=== PATIENT | male | born 1945 | race Caucasian/White ===

== ENCOUNTER 2018-12-06 08:37 | Emergency (ER) | payer BC, MEDICARE ==
[~2018-12-06] VITALS: Ht 175.3 cm; Wt 87.7 kg
[~2018-12-06 08:37] MED LIST: ASPIRIN LOW DOS81 M2 PO; LISINOPRIL10 MG PO; PRAVASTATIN20 MG PO; VICOPROFEN OR; VITAMIN D-31000 UNI1 PO
[2018-12-06 09:18] LABS: HEMATOCRIT 36.4 % (39.0-50.0); HEMOGLOBIN 12.2 g/dl (14.0-18.0); IMMATURE GRANULOCYTES 0.4 % (0.0-5.0); MEAN CELL VOLUME 90.5 fL CALC (80.0-100.0); MEAN CORPUSCULAR HGB 30.3 pG CALC (26.0-32.0); MEAN CORPUSCULAR HGB CONC 33.5 g/L CALC (32.0-36.0); NEUT# 3.53 thou/uL (1.82-7.42); RED BLOOD COUNT 4.02 mill/uL (4.70-6.10); RED CELL DISTRI WIDTH 12.7 % (11.5-15.5)
[2018-12-06 09:20] LABS: URINE BILIRUBIN - DIPSTICK NEGATIVE (NEGATIVE); URINE BLOOD DIPSTICK NEGATIVE (NEGATIVE); URINE COLOR YELLOW; URINE GLUCOSE - DIPSTICK NEGATIVE (NEGATIVE); URINE KETONE NEGATIVE (NEGATIVE); URINE LEUK ESTERASE TRACE (NEGATIVE); URINE NITRITE - DIPSTICK NEGATIVE (Negative); URINE PROTEIN - DIPSTICK NEGATIVE (NEG-TRACE); URINE UROBILINOGEN - DIPSTICK 0.2 E.U./dL (0.2)
[2018-12-06] MEDS ORDERED: FINASTERIDE5 MG PO (09:26)
[2018-12-06] MEDS ORDERED: CASODEX50 MG PO (09:26)
[2018-12-06 09:29] LABS: ALBUMIN 4.3 g/dL (3.2-5.0); ALKALINE PHOSPHATASE 61 u/l (38-126); ANION GAP 13 (6-22 (CALC)); BILIRUBIN, TOTAL 0.4 mg/dL (0.0-1.4); BUN 24 mg/dL (8-23); BUN/CREATININE RATIO 24 (12-20 (CALC)); CARBON DIOXIDE 28 mmol/l (22-30); CHLORIDE 100 mmol/l (95-108); GFR > 60 ML/MIN (>=60 (CALC)); GFR FOR AFR.AMER. > 60 ML/MIN (>=60 (CALC)); POTASSIUM 4.1 mmol/l (3.5-5.1); SGOT/AST 25 u/l (19-48); SODIUM 137 mmol/l (137-146); TOTAL PROTEIN 7.1 g/dL (6.3-8.2)
[2018-12-06] MEDS ORDERED: ALFUZOSIN HCL E10 MG PO (09:29)
[2018-12-06] MEDS ORDERED: LISINOP/HCTZ1 TAB PO (09:31)
[2018-12-06] MEDS ORDERED: PERCOCET 10/31 COMBO PO (12:14)
[2018-12-06] MEDS ORDERED: KEFLEX500 M1 PO (12:19)
[2018-12-06 12:54] VITALS: BP 132/66
== END 2018-12-06 12:54 | disposition home or self-care (01) | DRG 700 ==
LOC: ED 08:37
PROVIDERS: Emergency Medicine
PROC: 0T9B70Z Drainage of Bladder with Drainage Device, Via Natural or Artificial Opening (ICD-10-PCS; principal; 2018-12-06)
DX: N32.0 Bladder-neck obstruction (principal); I10 Essential (primary) hypertension

== ENCOUNTER 2019-01-19 20:39 | Observation (INO) | payer BC, MEDICARE ==
[~2019-01-19] VITALS: Ht 175.3 cm; Wt 89.0 kg
[~2019-01-19 20:39] MED LIST changes: +ALFUZOSIN HCL E10 MG PO; +CASODEX50 MG PO; +FINASTERIDE5 MG PO; +KEFLEX500 M1 PO; +LISINOP/HCTZ1 TAB PO; +PERCOCET 10/31 COMBO PO
--- NOTE | 2019-01-19 20:54 | NUR ---
PT TO ROOM 10 FOR TRIAGE.
--- NOTE | 2019-01-19 20:55 | NUR ---
PT. TO ROOM 10 VIA W/C AND C/O HAVING A TURP PERFORMED AT [place] APPROX. 3 WEEKS AGO, AND THEN TODAY PT. STATES HE STARTED HAVING BLOODY URINE. PT. ALSO STATES HE HAS PAIN IN HIS GRION. ABD. SOFT WITH + BOWEL SOUNDS.
--- NOTE | 2019-01-19 21:39 | NUR ---
VAZ CATH INSERTED PER MD ORDER. PATIENT AND DRAINING LIGHT ALDRIDGE COLORED URINE, NO CLOTS NOTED APPROX 350 ML. PT. STATES," I FEEL MUCH BETTER NOW. VAZ CATH. IRRIGATED WITH NS. COLOR REMAINS THE SAME. ONE SMALL CLOT NOTED. PT. TOLERATED WELL.
[2019-01-19 22:12] LABS: HEMATOCRIT 33.8 % (39.0-50.0); HEMOGLOBIN 11.7 g/dl (14.0-18.0); IMMATURE GRANULOCYTES 0.3 % (0.0-5.0); MEAN CELL VOLUME 88.3 fL CALC (80.0-100.0); MEAN CORPUSCULAR HGB 30.5 pG CALC (26.0-32.0); MEAN CORPUSCULAR HGB CONC 34.6 g/L CALC (32.0-36.0); NEUT# 4.25 thou/uL (1.82-7.42); RED BLOOD COUNT 3.83 mill/uL (4.70-6.10); RED CELL DISTRI WIDTH 12.3 % (11.5-15.5)
[2019-01-19 22:13] LABS: URINE BLOOD DIPSTICK LARGE (NEGATIVE); URINE GLUCOSE - DIPSTICK NEGATIVE (NEGATIVE); URINE KETONE NEGATIVE (NEGATIVE); URINE LEUK ESTERASE TRACE (NEGATIVE); URINE PH 6.5 (4.5-8.0); URINE PROTEIN - DIPSTICK 100 mg/dL (NEG-TRACE); URINE SPECIFIC GRAVITY 1.015; URINE UROBILINOGEN - DIPSTICK 0.2 E.U./dL (0.2)
[2019-01-19 22:14] LABS: URINE COLOR AMBER
[2019-01-19 22:15] LABS: URINE BILIRUBIN - DIPSTICK NEGATIVE (NEGATIVE); URINE NITRITE - DIPSTICK POSITIVE (Negative)
[2019-01-19 22:19] LABS: URINE AMORPH SEDIMENT FEW hpf (NONE-FER); URINE RBC 25-50 RBC/hpf (0-5); URINE WBC 0-2 WBC/hpf (0-5)
--- NOTE | 2019-01-19 22:30 | NUR ---
MD IN ROOM TO DISCUSS CLINICAL FINDINGS WITH PT. AND TO ALSO MAKE HIM AWARE OF ADMISSION, VERBALIZED UNDERSTANDING.
[2019-01-19 22:32] LABS: ALBUMIN 4.1 g/dL (3.2-5.0); ALKALINE PHOSPHATASE 70 u/l (38-126); ANION GAP 16 (6-22 (CALC)); BILIRUBIN, TOTAL 0.4 mg/dL (0.0-1.4); BUN 22 mg/dL (8-23); BUN/CREATININE RATIO 25 (12-20 (CALC)); CARBON DIOXIDE 29 mmol/l (22-30); CHLORIDE 94 mmol/l (95-108); CREATININE 0.9 mg/dL (0.7-1.3); GFR > 60 ML/MIN (>=60 (CALC)); GFR FOR AFR.AMER. > 60 ML/MIN (>=60 (CALC)); SGOT/AST 41 u/l (19-48); SODIUM 135 mmol/l (137-146); TOTAL PROTEIN 6.9 g/dL (6.3-8.2)
--- NOTE | 2019-01-19 23:05 | NUR ---
PT. STATES HIS GROIN PAIN IS NOW REDUCED TO A 2 ON A SCAL OF 1-10.
--- NOTE | 2019-01-19 23:15 | NUR ---
PT. VZA CATH EMPTIED FOR 1000 ML ALDRIDGE COLORED URINE.
--- NOTE | 2019-01-19 23:26 | NUR ---
MEGA WAS BUSY SO I GAVE REPORT TO TOR COTTO, PT DID NOT HAVE CATHETER SWITCHED TO [address] HERE AND TOR SAINI BRICK AND BLOCK MASON IS GOING TO TAKE PT UP TO FLOOR AND HELP KIRTI CHANGE VAZ
--- NOTE | 2019-01-19 23:30 | NUR ---
PER ER CONSULT FOR UROLOGY IS TO BE CALLED IN AM TOMORROW.
[2019-01-19 23:35] VITALS: BP 145/71
--- NOTE | 2019-01-19 23:35 | NUR ---
Admission Note Report Given to: TOR COTTO Transported by: Wheelchair X Stretcher Transported with: X Nurse Transporter X Patent IV [id number] Flask Cleaner
--- NOTE | 2019-01-19 23:40 | NUR ---
PT. TAKEN TO OK FLOOR VIA STRETCHER, NO C/O.
--- NOTE | 2019-01-20 00:10 | NUR ---
[id number]- PT. ARRIVED TO THE FLOOR VIA STRETCHER ACCOMPANIED BY UMBRELLA FRAME MAKER, PARVEEN, AND FAMILY @2335 . PT. ABLE TO AMBULATE TO BED WITH STEADY GAIT. NO DISTRESS NOTED. EDUCATED ON POC, CALL LIGHT, AND ORIENTED TO ROOM; VERBALIZES UNDERSTANDING. PT. WITH VAZ CATHETER IN AT THIS TIME AND EMPTIED OF 600MLS OF BLOODY URINE; NO CLOTS NOTED. REMOVED AT THIS TIME BY UMBRELLA FRAME MAKER AND THEN UMBRELLA FRAME MAKER ATTEMPTED TO PLACE [address] CATHETER ORDERED AND IS UNSUCCESSFUL AT THIS TIME. @0010 DR. PADILLA NOW AT BEDSIDE AND PLACED [address] CATHETER WITH ONE ATTEMPT, URINE BLOODY WITH NO CLOTS NOTED TO TUBING. CBI INITIATED AT THIS TIME(WIDE OPEN). PT. NOW IN PAIN AND ORDERS RECEIVED FOR PERCOCET, WILL MEDICATE WHEN IN EMAR. ADMISSION ASSESSMENT COMPLETED. IV SITE PATENT AND ORDERED IVF CONNECTED.
--- NOTE | 2019-01-20 00:26 | NUR ---
MEDICATED WITH ORDERED PERCOCET FOR PENILE PAIN 12/12; WILL REASSESS. SNACK PROVIDED. FAMILY REMAINS AT BEDSIDE. CBI RUNNING AND DRAINAGE CLEAR PEACH NOTED TO TUBING; WILL CONTINUE TO MONITOR.
--- NOTE | 2019-01-20 01:41 | NUR ---
CBI REMAINS IRRIGATING THROUGH [address] WAY CATHETER AND DRAINAGE PEACH AND CLEAR AT GRAVITY LEVEL .BAG #3 STARTED AT THIS TIME. PT. TOLERATING WELL. PT. DENIES NEEDS AND VOICES NO CONCERNS. CALL LIGHT IS IN REACH.
[2019-01-20 03:35] VITALS: BP 116/58
--- NOTE | 2019-01-20 04:04 | NUR ---
BAG #5 STARTED TO CBI AND CONTINUES TO RUN WITHOUT DIFFICULTY. DRAINAGE REMAINS PEACH AND CLEAR WITH NO BLOOD CLOTS NOTED. PT. DENIES NEEDS/PAIN. ENCOURAGED TO CALL FOR ANY NEEDS. CALL LIGHT IS IN REACH. WILL CONITNUE TO MONITOR.
--- NOTE | 2019-01-20 06:40 | NUR ---
CBI CONTINUES RUNNING WITHOUT DIFFICULTY. BAG #6 FINISHED AND BAG #7 STARTED. DRAINAGE REMAINS CLEAR WITH SLIGHT PINK TINGED WITH NO CLOTS NOTED. NEW BAG OF ORDERED IVF STARTED. DENIES NEEDS FOR PAIN MEDS AT THIS TIME. ENCOURAGED TO CALL FOR ANY NEEDS. CALL LIGHT IS IN REACH. WILL CONTINUE TO MONITOR.
[2019-01-20 07:53] VITALS: BP 142/79
--- NOTE | 2019-01-20 08:32 | NUR ---
I SPOKE WITH GRAZYNA FROM DR. REHMAN OFFICE @0828 AM FOR THE CONSULTATION ORDERED. THE CONSULTAION WAS FOR A HEMATURIA AND THE LEGISLATIVE DIRECTOR STATED THAT SHE WOULD TEXT THE PHYSICIAN REGARDING THE CONSULT. #[phone]
--- NOTE | 2019-01-20 08:32 | NUR ---
ASSESSMENT DONE. PT IS A&O X3. PT STATED PAIN IN PENIS 4/10 MEDICATED PT WITH PERCOCET. PT IS TRUP PT. VAZ IS PATENT WITH PEACH COLOR URINE AND NO BLOOD CLOTS NOTED. IVF INFUSING WELL. PT DENIES ANY OTHER NEEDS AT THIS TIME. CALL LIGHT IN REACH.
--- NOTE | 2019-01-20 11:30 | NUR ---
PT STATED HE FEELS PRESSURE. VAZ IN NOT PATENT. DID BLADDER IRRIGATION AND A MODERATED BLOOD CLOT CAME OUT. PT STATED HE FELT RELIEVED. PT DENIES ANY OTHER NEEDS AT THIS TIME. CALL LIGHT IN REACH.
[2019-01-20 15:48] VITALS: BP 118/72
--- NOTE | 2019-01-20 16:00 | NUR ---
PT IS VISITING IN ROOM WITH FAMILY AND FRIENDS. PT DENIES PAIN. MILIND IS PATENT WITH PEACH /CLEAR URINE. NO BLOOD CLOTS NOTED. CALL LIGHT IN REACH.
[2019-01-20 19:55] VITALS: BP 145/80
--- NOTE | 2019-01-20 21:47 | NUR ---
PT IV FLUIDS REPLENISHED AT THIS TIME. CBI RUNNING CLEAR YELLOW AT THIS TIME. PT DENIES PAIN AT THIS TIME. WILL CONTINUE TO MONITOR.
--- NOTE | 2019-01-20 23:42 | NUR ---
PT CBI IS PATENT AND DRAINING CLEAR YELLOW. PT REPORTS MILD PRESSURE ONLY IN PENILE AND BLADDER AREA. NO S/O DISTRESS AT THIS TIME. DENIES ANY OTHER NEEDS. CALL LIGHT IN PLACE AND PT ENCOURAGED TO CALL NEEDS ARISE.
--- NOTE | 2019-01-21 02:35 | NUR ---
PT UP TO BSC AND BACK TO BED. PT C/O PRESSURE BUILDING IN BLADDER AREA "FEELS LIKE EARLIER TODAY WHEN IT CLOTTED." CBI APPEARS TO BE DRAINING, BUT NOT APPROPRIATELY FOR RATE OF INPUT OF FLUIDS. FLUIDS STOPPED AND BLADDER IRRIGATED/FLUSHED W/50CC OF STERILE SALINE, MODERATE AMOUNT OF CLOTS REMOVED FROM CATHETER AND CBI RECONNECTED AND OPENED TO HIGH RATE, WILL MONITOR CLOSELY FOR CLOTS. STILL DRAINING CLEAR YELLOW AT THIS TIME. PT ENCOURAGED TO CALL IF HE BEGINS TO FEEL THE PRESSURE INCREASE AGAIN, PT VOICED UNDERSTANDING.
--- NOTE | 2019-01-21 03:47 | NUR ---
PT CBI FLUIDS REPLENISHED, APPEARS PATENT AND IS DRAINING LIGHT CLEAR YELLOW. PT IS SLEEPING, NO S/O DISTRESS AT THIS TIME. CALL LIGHT AT SIDE.
[2019-01-21 04:24] VITALS: BP 123/69
--- NOTE | 2019-01-21 04:32 | NUR ---
CBI DRAINING VERY PALE CLEAR YELLOW. PT DENIES ANY PRESSURE OR NEEDS AT THIS TIME.
[2019-01-21 05:23] LABS: HEMATOCRIT 30.4 % (39.0-50.0); HEMOGLOBIN 10.2 g/dl (14.0-18.0); MEAN CELL VOLUME 89.9 fL CALC (80.0-100.0); MEAN CORPUSCULAR HGB 30.2 pG CALC (26.0-32.0); MEAN CORPUSCULAR HGB CONC 33.6 g/L CALC (32.0-36.0); RED BLOOD COUNT 3.38 mill/uL (4.70-6.10); RED CELL DISTRI WIDTH 12.4 % (11.5-15.5)
[2019-01-21 05:46] LABS: ANION GAP 13 (6-22 (CALC)); BUN 11 mg/dL (8-23); BUN/CREATININE RATIO 14 (12-20 (CALC)); CHLORIDE 105 mmol/l (95-108); CREATININE 0.8 mg/dL (0.7-1.3); GFR > 60 ML/MIN (>=60 (CALC)); GFR FOR AFR.AMER. > 60 ML/MIN (>=60 (CALC)); POTASSIUM 4.5 mmol/l (3.5-5.1); SODIUM 136 mmol/l (137-146)
[2019-01-21 05:54] LABS: CARBON DIOXIDE 23 mmol/l (22-30)
--- NOTE | 2019-01-21 06:18 | NUR ---
PT CBI DRAINING CLEAR YELLOW, PT REPORTED BUILD UP OF PRESSURE, UPON ASSESSMENT CBI FOUND NOT DRAINING RATE OF INPUT. PT FLUSHED, NO CLOTS FOUND, BUT CATHETER PROCEEDED TO START DRAINING. WILL CONTINUE TO MONITOR AND PT INSTRUCTED TO CALL IF HE BEGINS TO FEEL STRONG PRESSURE AGAIN. PT REPORTS RELIEF AT THIS TIME.
--- NOTE | 2019-01-21 07:30 | NUR ---
REPORT RECEIVED FROM TOR REILLY. PT SITTING UPRIGHT IN BED. DENIES PAIN. REPORTING OF CONCERNS, PAIN/PRESSURE/CHANGES IN CBI FLOW ENCOURAGED. CALL LIGHT REVIEWED AND IN REACH. PLAN OF CARE DISCUSSED. PT. ALERT AND ORIENTED. FALL PRECAUTIONS REIFORCED. PT REPORTS NORMAL BM THIS AM. #20 RAC INFUSING IVF W/O DIFFICULTY. NO REDNESS/SWELLING AT SITE. CBI FLOWING SMOOTHLY, DRAINING CLEAR SLIGHTLY YELLOW INTO VAZ DRAINAGE BAG.
[2019-01-21 08:26] VITALS: BP 138/73
--- NOTE | 2019-01-21 09:24 | NUR ---
PT REPORTS MODERATE, 6 ON SCALE OF 0-10, PAIN TO LOWER ABDOMIN. MORPHINE IV ADMINISTERED PER PT. REQUEST. PT NOW REPORTS RELIEF OF PAIN, WITH A CONSTANT DULL PRESSURE REMAINING. REPORTING OF FURTHER CONCERNS ENCOURAGED. CBI CONTINUES TO FLOW W/O DIFFICULTY, DRAINAGE CLEAR/PINK, NO CLOTS.
[2019-01-21 10:56] VITALS: BP 138/78
--- NOTE | 2019-01-21 12:23 | NUR ---
dr. conley in to see pt at this time.
--- NOTE | 2019-01-21 12:35 | NUR ---
SPOKE W/ DR. THOMPSON, UPDATE ON CONDITION GIVEN. ORDERS FOR NPO AFTER MD AND CONSENT FOR CYSTOSCOPY W/ PROSTATE CAUTERIZATION.
--- NOTE | 2019-01-21 13:36 | NUR ---
PT. LEFT FLOOR VIA WC ACCOMPANIED BY VOLUNTEER, DESTINATION XRAY.
[2019-01-21 16:07] VITALS: BP 174/78
--- NOTE | 2019-01-21 16:10 | NUR ---
PT DENIES COMPLAINTS AT THIS TIME. CBI RUNNING, DRAINAGE CLEAR PALE YELLOW. NO PAIN/PRESSURE. NO CLOTS VISUALIZED.
--- NOTE | 2019-01-21 19:18 | NUR ---
PT IN BED W/CBI RUNNING SLOWLY, CLEAR LIGHT YELLOW OUTPUT/APPEARS PATENT. PT DENIES PRESSURE OR PAIN AT THIS TIME. VISITOR IS AT BEDSIDE. WILL FOLLOW-UP WITH ASSESSMENT AND CONTINUE TO MONITOR. CALL LIGHT AT SIDE.
[2019-01-21 19:45] VITALS: BP 129/68
--- NOTE | 2019-01-21 21:09 | NUR ---
PT MEDICATED ORDERS PROVIDE AND FOR PAIN 5/10 ON PAIN SCALE. REPORTED PAIN IN "CATHETER AREA" DENIES PRESSURE BUILD-UP LIKE PREVIOUS NIGHT WHEN CATHETER WAS OCCLUDED. CBI DRAINING CLEAR YELLOW URINE AND APPEARS PATENT AT THIS TIME. PT DENIES ANY OTHER NEEDS, FAMILY/FRIEND AT BEDSIDE WATCHING BALLGAME W/PT. CALL LIGHT IN HAND.
--- NOTE | 2019-01-21 22:31 | NUR ---
PT SLEEPING SOUNDLY AT THIS TIME. NO S/O DISTRESS NOTED. CBI DRAINING CLEAR YELLOW/APPEARS PATENT.
--- NOTE | 2019-01-21 23:30 | NUR ---
PT AWOKE TO MY ENTERING ROOM AND WAS VERY TALKATIVE. PT ASKED WHEN HE COULD GET HIS MORPHINE AGAIN, CLIENT SUCCESS MANAGER ASKED PT IF HE WAS HAVING PAIN HE REPLIED, "WELL A LITTLE BIT OF PRESSURE DOWN THERE AND IT HELPS ME SLEEP." MEDICATION NOT AVAILABLE AT THIS TIME. WHEN PT WAS ASKED FOR PAINSCALE NUMBER/REPORTED 06/14. WILL CONTINUE TO MONITOR. CBI APPEARS PATENT AND IS DRAINING CLEAR LIGHT YELLOW.
[2019-01-22] VITALS (10 sets, daily range): BP systolic 118–144; BP diastolic 53–81
--- NOTE | 2019-01-22 00:09 | NUR ---
IVF REPLENISHED AT THIS TIME AND CBI FLUIDS SWITCHED/1000CC OF CLEAR YELLOW URINE OUTPUT MEASURED AT THIS TIME. PT DENIES PRESSURE IN BLADDER, REPORTS A "SMALL AMOUNT OF DISCOMFORT WHERE CATHETER IS PLACED." PT ASKING FOR MORPHINE TO HELP HIM BE MORE COMFORTABLE. REFUSES PERCOCET STATING "IT MADE ME ITCH COMING OFF OF IT." MACHINE SETTER WILL FOLLOW-UP AND PROVIDE MEDICATION ORDERS PROVIDE AND AVAILABLE. PT IS NPO, POC DISCUSSED W/PT.
--- NOTE | 2019-01-22 01:30 | NUR ---
PT MEDICATED FOR DISCOMFORT REPORTED IN BLADDER/PENILE AREA. PT DENIES ANY OTHER NEEDS. CBI DRAINING TO GRAVITY CLEAR YELLOW.
--- NOTE | 2019-01-22 04:10 | NUR ---
CBI DRAINING TO GRAVITY CLEAR PALE YELLOW. PT DENIES DISCOMFORT, JUST EXPRESSES FEELING ANXIOUS FOR SURGERY/TALKED W/PT. WILL CONTINUE TO MONITOR. ENCOURAGED PT TO CALL ANY NEEDS ARISE.
[2019-01-22 05:07] LABS: HEMATOCRIT 29.4 % (39.0-50.0); HEMOGLOBIN 9.8 g/dl (14.0-18.0); MEAN CELL VOLUME 89.9 fL CALC (80.0-100.0); MEAN CORPUSCULAR HGB CONC 33.3 g/L CALC (32.0-36.0); RED BLOOD COUNT 3.27 mill/uL (4.70-6.10); RED CELL DISTRI WIDTH 12.3 % (11.5-15.5)
[2019-01-22 05:35] LABS: ANION GAP 11 (6-22 (CALC)); BUN 9 mg/dL (8-23); BUN/CREATININE RATIO 11 (12-20 (CALC)); CARBON DIOXIDE 26 mmol/l (22-30); CHLORIDE 104 mmol/l (95-108); CREATININE 0.8 mg/dL (0.7-1.3); GFR > 60 ML/MIN (>=60 (CALC)); GFR FOR AFR.AMER. > 60 ML/MIN (>=60 (CALC)); POTASSIUM 4.3 mmol/l (3.5-5.1); SODIUM 136 mmol/l (137-146)
--- NOTE | 2019-01-22 05:51 | NUR ---
cbi fluids replenished at this time. draining to gravity to clear pale yellow.
--- NOTE | 2019-01-22 06:41 | NUR ---
PT MEDICATED FOR PAIN 08/12, ASKING FOR HIS "PAIN SHOT." REFUSES PERCOCET REPORTING "HAD ITCHING COMING DOWN OFF OF IT." NO OTHER S/O DISTRESS NOTED. CBI DRAINING TO GRAVITY CLEAR YELLOW.
--- NOTE | 2019-01-22 08:40 | NUR ---
ASSESSMENT IS COMPLTED: IV SITE IS FREE FROM REDNESS OR EDEMA. HR IS REG,PULSES ARE STRONG X4, ABD IS SOFT WITH ACTIVE BS . BREATH SOUNDS ARE CLEAR, BILATERALLY. VAZ DRAINING YELLOW AND CLEAR URINE. TOLERATING THE CBI. CONTINUE TO OSBERVE AND MONITOR.
--- NOTE | 2019-01-22 09:30 | NUR ---
EMPTIED THE CBI BAG HAS 2600 SO FAR WITH 1/2 BAG OF CBI FLUID TO GO READY FOR TRANSPORT TO OR.
--- NOTE | 2019-01-22 11:45 | NUR ---
PT TRANSPORTED TO OR VIA STRETCHER WITH FAMILY ACCOMPANYING/ IV SITE IS FREE FROM REDNESS OR EDEMA. VAZ DRAINING YELLOW AND CLEAR FLUID.
--- NOTE | 2019-01-22 12:44 | NUR ---
PT REMAINS IN OR.
--- NOTE | 2019-01-22 13:35 | NUR ---
PT REMAINS IN OR.
--- NOTE | 2019-01-22 14:45 | NUR ---
PT RETURNED FROM OR. IV INTACT, WITH CBI GOING HAS LIGHT COLORED URINE AT THIS TIME. PT ABLE TO TRANSFER TO THE BED , AMBULATED AND PIVOTED. FAMILY IN THE ROOM. CONTINUE TO OBSERVE AND MONITOR.
--- NOTE | 2019-01-22 16:30 | NUR ---
PT HAS BEEN RESTING IN BED WITH NO DISTRESS NOTED. GAVE PAIN MEDICATION UPON ARRIVAL FROM OR HAS BEEN RESTING . WAS EFFECTIVE. CONTINUE TO OSBERVE AND MONITOR.
--- NOTE | 2019-01-22 19:05 | NUR ---
REPORT RECEIVED FROM COLEMAN WHITAKER. PT RESTING IN BED. NO S/S OF DISTRESS AT THIS TIME. SAFETY PRECAUTIONS IN PLACE, WILL CONTINUE TO MONITOR.
--- NOTE | 2019-01-22 21:10 | NUR ---
PT RESTING IN BED. ALERT AND ORIENTED. PT FELT CLAMY, PT GOWN WAS WET FROM SWEAT, TEMP CHECKED AND BLOOD SUGAR CHECKED BLOOD SUGAR 296. CHANGED PT GOWN AND PILLOW CASES. RESPIRATIONS EVEN AND UNLABORED ON RA, LUNGS SOUND CLEAR. PEDAL PULSES STRONG. PT DENIES ANY PAIN AT THIS TIME. #20 LFA NS @ 150 APPEARS HEALTHY. CBI IN PROGRESS, DRAINING TO GRAVITY, PALE YELLOW, NO CLOTS SEEN AT THIS TIME. SAFETY PRECAUTIONS IN PLACE. WILL CONTINUE TO MONITOR.
--- NOTE | 2019-01-23 00:21 | NUR ---
PT RESTING IN BED, WITH EYES CLOSED. RESPIRATIONS ARE EVEN AND UNLABORED ON RA. CBI IN PROGRESS. WILL CONTINUE TO MONITOR.
--- NOTE | 2019-01-23 04:01 | NUR ---
PT RESTING IN BED WITH EYES CLOSED. RESPIRATIONS EVEN AND UNLABORED ON RA. NO S/S OF DISTRESS AT THIS TIME.
[2019-01-23 04:35] VITALS: BP 150/81
[2019-01-23 05:09] LABS: HEMATOCRIT 33.2 % (39.0-50.0); HEMOGLOBIN 10.8 g/dl (14.0-18.0); MEAN CELL VOLUME 91.7 fL CALC (80.0-100.0); MEAN CORPUSCULAR HGB 29.8 pG CALC (26.0-32.0); MEAN CORPUSCULAR HGB CONC 32.5 g/L CALC (32.0-36.0); RED BLOOD COUNT 3.62 mill/uL (4.70-6.10)
--- NOTE | 2019-01-23 06:55 | NUR ---
PT REPORT RECIEVED FROM TOR OKEEFE. PT SLEEPING. NO S/S OF DISTRESS. CALL LIGHT IN REACH. WILL CONTINUE TO MONITOR.
[2019-01-23 08:09] VITALS: BP 140/85
--- NOTE | 2019-01-23 08:09 | NUR ---
PT A/O X3. RESP EVEN AND UNLABORED. LUNG SOUNDS CLEAR IN UPPER LOBES, DIMINISHED IN LOWER LOBES. STRONG RADIAL AND PEDAL PULSES. #20 LFA NS @150. SITE APPEARS HEALTHY. SKIN INTACT. PT HAS [address] VAZ. URINE CLEAR YELLOW AT THIS TIME. PT DENIES ANY PAIN OR NEEDS. POC DISCUSSED. SAFETY PRECAUTIONS IN PLACE. CALL LIGHT IN REACH. WILL CONTINUE TO MONITOR.
--- NOTE | 2019-01-23 11:26 | NUR ---
900CC OF CLEAR YELLOW URINE REMOVED FROM VAZ; LEG BAG APPLIED
--- NOTE | 2019-01-23 11:50 | NUR ---
PT REFUSED LUNCH; ANXIOUS TO GO HOME. NO C/O PAIN OR NEEDS. CALL LIGHT IN REACH. WILL CONTINUE TO MONITOR.
[2019-01-23] MEDS ORDERED: LISINOPRIL20 M1 PO (11:56)
[2019-01-23] MEDS ORDERED: POM PO (11:57)
[2019-01-23] MEDS ORDERED: KEFLEX500 M1 PO (12:28)
[2019-01-23] MEDS ORDERED: LORTAB5 PO (12:28)
--- NOTE | 2019-01-23 12:45 | NUR ---
D/C INSTRUCTIONS DISCUSSED W/ PT. PT VERBALIZES UNDERSTANDING. IV REMOVED EARLIER THIS MORNIG; CATHEER WAS INTACT. PT DRESSED. SPOUSE AT BEDSIDE.
--- NOTE | 2019-01-23 12:49 | NUR ---
Discharge instructions given. Patient verbalizes understanding of same. Discharged in stable condition via Wheelchair to Home with family. All belongings sent with pt.
[2019-01-24] MEDS ORDERED: LISINOP/HCTZ1 TAB PO (11:35)
== END 2019-01-23 12:48 | disposition home or self-care (01) | DRG 989 ==
LOC: ED 20:39 → ED-I 22:36 → ED 22:53 → MS2 22:54
PROVIDERS: Emergency Medicine; Internal Medicine; ADMIT Internal Medicine; ATTEND Internal Medicine
PROC: 0T9B70Z Drainage of Bladder with Drainage Device, Via Natural or Artificial Opening (ICD-10-PCS; 2019-01-19)
PROC: 0VB08ZZ Excision of Prostate, Via Natural or Artificial Opening Endoscopic (ICD-10-PCS; principal; 2019-01-22)
PROC: 0TCB8ZZ Extirpation of Matter from Bladder, Via Natural or Artificial Opening Endoscopic (ICD-10-PCS; 2019-01-22)
DX: N99.820 Postprocedural hemorrhage of a genitourinary system organ or structure following a genitourinary system procedure (principal); D29.1 Benign neoplasm of prostate; N42.0 Calculus of prostate; N32.89 Other specified disorders of bladder; I10 Essential (primary) hypertension; Y83.6 Removal of other organ (partial) (total) as the cause of abnormal reaction of the patient, or of later complication, without mention of misadventure at the time of the procedure; Z85.46 Personal history of malignant neoplasm of prostate; Z79.899 Other long term (current) drug therapy; Z87.891 Personal history of nicotine dependence; Z79.82 Long term (current) use of aspirin
CPT/HCPCS: G0378; J1100

== ENCOUNTER 2019-01-24 11:20 | Emergency (ER) | payer BC, MEDICARE ==
[~2019-01-24] VITALS: Ht 175.3 cm; Wt 96.0 kg
[~2019-01-24 11:20] MED LIST changes: +LISINOPRIL20 M1 PO; +LORTAB5 PO; +POM PO
[2019-01-24] MEDS ORDERED: LISINOP/HCTZ1 TAB PO (11:35)
[2019-01-24 12:13] VITALS: BP 155/89
== END 2019-01-24 12:13 | disposition home or self-care (01) | DRG 700 ==
LOC: ED 11:20
DX: T83.098A Other mechanical complication of other urinary catheter, initial encounter (principal); R33.8 Other retention of urine; I10 Essential (primary) hypertension; Y84.6 Urinary catheterization as the cause of abnormal reaction of the patient, or of later complication, without mention of misadventure at the time of the procedure